=== PATIENT | female | born 1990 | race Hispanic/Latino ===

== ENCOUNTER 2017-05-06 14:43 | Emergency (ER) | payer BC, SELFPAY | END 2017-05-06 16:48 | disposition home or self-care (01) | LOC: ERS 14:43 | DX: N61.0 Mastitis without abscess (principal); J02.9 Acute pharyngitis, unspecified; F17.210 Nicotine dependence, cigarettes, uncomplicated | CPT/HCPCS: 99283 ==

== ENCOUNTER 2017-06-26 20:23 | Emergency (ER) | payer BC ==
[2017-06-26 21:53] LABS: Bilirubin Negative (Negative); Blood, Urine Negative (Negative); Clarity TURBID (Clear); Glucose, Urine (Dipstick) Negative (Negative); Leukocyte Negative (Negative); Nitrite Negative (Negative); Protein, Urine (Dipstick) Negative (Neg-Trace)
[2017-06-26 21:54] LABS: Pregnancy Test - Urine (BHCG) Negative (Negative); Pregu Control Background? CLEAR/WHITE (CLR/WHITE); Pregu Control Bar Appear? YES (CONTROL BAR)
== END 2017-06-26 22:59 | disposition left against medical advice (07) ==
LOC: ERS 20:23
DX: Z53.21 Procedure and treatment not carried out due to patient leaving prior to being seen by health care provider (principal)
CPT/HCPCS: 81003; 81025

== ENCOUNTER 2017-12-25 18:40 | Emergency (ER) | payer BC, SELFPAY ==
[2017-12-25] MEDS ORDERED: Dexamethasone 10 MG/ML VIAL ONE (19:50)
--- NOTE | 2017-12-25 20:20 | RAD ---
CHEST TWO VIEWS 12/25/17 HISTORY: Cough. COMPARISON: 02/19/10. FINDINGS: Normal cardiac silhouette. The lungs and pleural spaces are clear. No pneumothorax or osseous abnorma lities. IMPRESSION: No acute cardiopulmonary process. POS: [facility]
== END 2017-12-25 20:39 | disposition home or self-care (01) ==
LOC: ERS 18:40
DX: J20.9 Acute bronchitis, unspecified (principal); F17.210 Nicotine dependence, cigarettes, uncomplicated; Z71.6 Tobacco abuse counseling
CPT/HCPCS: 71046; 87081; 87430; 96372; 99406; J1100

== ENCOUNTER 2018-05-07 14:45 | Emergency (ER) | payer SELFPAY ==
[~2018-05-07 14:45] MED LIST: Iopamidol 370 76% 100 ML VIAL ONE
[2018-05-07 15:36] LABS: #Basophils 0.1 thou/uL (0.0-0.2); #Eosinphils 0.1 thou/uL (0.0-0.7); #Lymphocytes 4.3 thou/uL (1.20-3.40); #Monocytes 0.8 thou/uL (0.11-0.59); %Lymphocytes 32.2 % (21.0-51.0); %Monocytes 6.1 % (0.0-10.0); %Neutrophils 59.7 % (42.0-75.0); Hemoglobin 15.5 g/dL (12.0-16.0); Mean Corpuscular HGB CONC 33.2 g/dL (32.0-36.0); Mean Corpuscular Hemoglobin 30.5 pg (27.0-31.0); Mean Corpuscular Volume 91.6 fL (78.0-98.0); Mean Platelet Volume 7.5 fL (7.4-10.4); Platelet Count 271 thou/uL (130-400); RBC Distribution Width 11.5 % (11.5-14.5); Red Blood Cell (RBC) Count 5.09 mill/uL (4.20-5.40); White Blood Cell (WBC) Count 13.4 thou/uL (4.8-10.8)
[2018-05-07 15:41] LABS: Bilirubin Negative (Negative); Blood, Urine Negative (Negative); Clarity CLEAR (Clear); Glucose, Urine (Dipstick) Negative (Negative); Leukocyte Negative (Negative); Nitrite Negative (Negative); Protein, Urine (Dipstick) Negative (Neg-Trace); Specific Gravity, Urine 1.026 (1.002-1.036); Urobilinogen 0.2 mg/dL (0.2-1.0)
[2018-05-07 15:42] LABS: Pregnancy Test - Urine (BHCG) Negative (Negative); Pregu Control Background? CLEAR/WHITE (CLR/WHITE); Pregu Control Bar Appear? YES (CONTROL BAR); Specific Gravity 1.026 (1.002-1.036)
[2018-05-07 15:56] LABS: ALT (SGPT) 27 U/L (8-55); AST (SGOT) 23 U/L (5-34); Albumin 4.6 g/dL (3.5-5.0); Alkaline Phosphatase 109 U/L (40-150); Anion Gap 13 mmol/L (10-20); BUN (Urea Nitrogen) 10 mg/dL (7.0-18.7); Bilirubin, Total 0.2 mg/dL (0.2-1.2); Calc. Creatinine Clearance 0 mL/min (70-130); Carbon Dioxide 25 mmol/L (22-29); Chloride 105 mmol/L (98-107); Estimated GFR-MDRD Greater than 90; Globulin 2.6 g/dL (2.4-3.5); Glucose 93 mg/dL (70-105); Lipase 25 U/L (8-78); Potassium 4.3 mmol/L (3.5-5.1); Protein, Total 7.2 g/dL (6.0-8.3); Sodium 139 mmol/L (136-145)
[2018-05-07] MEDS ORDERED: Fentanyl 100 MCG/2 ML VIAL ONE (17:24)
--- NOTE | 2018-05-07 17:34 | CT ---
CT ABDOMEN AND PELVIS WITH IV CONTRAST 05/07/18 HISTORY: Abdominal pain. COMPARISON: 11/12/12. FINDINGS: There is minimal atelectasis at the right lung base. Lung bases are otherwise clear. The liver, spleen, pancreas, bilateral adrenal glands, kidneys, abdominal aorta, urinary bladder, [place] and adnexal structures demonstrate a normal CT appearance. The appendix is visualized and normal in caliber. There is no free fluid, fluid collection or lymphadenopathy seen in the abdomen or pelvis. CT abdomen and pelvis is stable when compared to the prior exam in 2012. IMPRESSION: No acute findings in the abdomen or pelvis. POS: [facility]
== END 2018-05-07 17:49 | disposition home or self-care (01) ==
LOC: ERS 14:45
DX: R11.2 Nausea with vomiting, unspecified (principal); R19.7 Diarrhea, unspecified; R10.31 Right lower quadrant pain; Z71.6 Tobacco abuse counseling; F17.210 Nicotine dependence, cigarettes, uncomplicated
CPT/HCPCS: 36415; 74177; 80053; 81003; 81025; 83690; 85025; 96361; 96374; 99406; J3010; Q9967

== ENCOUNTER 2018-12-17 09:38 | Emergency (ER) | payer SELFPAY ==
[2018-12-17 11:03] LABS: #Basophils 0.1 thou/uL (0.0-0.2); #Eosinphils 0.1 thou/uL (0.0-0.7); #Lymphocytes 2.3 thou/uL (1.20-3.40); #Monocytes 0.7 thou/uL (0.11-0.59); #Neutrophils 9.2 thou/uL (1.40-6.50); %Basophils 0.8 % (0.0-1.0); %Eosinophils 0.6 % (0.0-10.0); %Lymphocytes 18.8 % (21.0-51.0); %Monocytes 5.9 % (0.0-10.0); Hemoglobin 16.7 g/dL (12.0-16.0); Mean Corpuscular HGB CONC 33.3 g/dL (32.0-36.0); Mean Corpuscular Hemoglobin 30.4 pg (27.0-31.0); Mean Corpuscular Volume 91.5 fL (78.0-98.0); Mean Platelet Volume 7.4 fL (7.4-10.4); Platelet Count 258 thou/uL (130-400); RBC Distribution Width 11.6 % (11.5-14.5); Red Blood Cell (RBC) Count 5.49 mill/uL (4.20-5.40); White Blood Cell (WBC) Count 12.5 thou/uL (4.8-10.8)
[2018-12-17 11:13] LABS: BHCG - Serum Negative (NEGATIVE); Pregs Control Background? CLEAR/WHITE (CLR/WHITE); Pregs Control Bar Appear? YES (CONTROL BAR)
[2018-12-17 11:26] LABS: ALT (SGPT) 37 U/L (8-55); AST (SGOT) 24 U/L (5-34); Albumin 4.5 g/dL (3.5-5.0); Alkaline Phosphatase 123 U/L (40-110); Anion Gap 13 mmol/L (10-20); BUN (Urea Nitrogen) 6 mg/dL (7.0-18.7); Bilirubin, Total 0.2 mg/dL (0.2-1.2); Calc. Creatinine Clearance 0 mL/min (70-130); Calcium 10.2 mg/dL (7.8-10.44); Carbon Dioxide 24 mmol/L (22-29); Chloride 107 mmol/L (98-107); Estimated GFR-MDRD Greater than 90; Globulin 2.9 g/dL (2.4-3.5); Glucose 103 mg/dL (70-105); Lipase 24 U/L (8-78); Potassium 4.7 mmol/L (3.5-5.1); Protein, Total 7.4 g/dL (6.0-8.3); Sodium 139 mmol/L (136-145)
--- NOTE | 2018-12-17 12:08 | ULT ---
Exam: Right upper quadrant ultrasound: HISTORY: Right upper quadrant pain radiating to lower abdomen COMPARISON: 11/19/2016 FINDINGS: Visualized liver:Unremarkable. Gallbladder:No evidence of gallstones, wall thickening, edema, or pericholecystic fluid. Technologist indicates a positive Jain's sign. Common bile duct:Within normal limits. The visualized pancreas and right kidney are unremarkable. No evidence for abscess or abnormal fluid collection in the right upper quadrant. IMPRESSION: No evidence of gallstones or common duct dilatation. Technologist indicates positive Jain's sign. If there is concern for acute cholecystitis clinically, follow-up nuclear medicine hepatobiliary scan should be considered.
[2018-12-17] MEDS ORDERED: Ketorolac Tromethamine 30 MG/ML VIAL ONE (12:21)
[2018-12-17] MEDS ORDERED: Ondansetron PF 4 MG/2 ML Vial ONE (12:21)
[2018-12-17 13:26] LABS: Bilirubin Negative (Negative); Blood, Urine Negative (Negative); Clarity Clear (Clear); Glucose, Urine (Dipstick) Normal (Negative); Leukocyte Negative Leu/uL (Negative); Nitrite Negative (Negative); Protein, Urine (Dipstick) Negative (Neg-Trace); Urobilinogen Normal mg/dL (Less than 2)
[2018-12-17] MEDS ORDERED: Acetaminophen 500 MG TAB ONE (14:39)
== END 2018-12-17 14:57 | disposition home or self-care (01) ==
LOC: ERS 09:38
DX: R10.11 Right upper quadrant pain (principal); F17.210 Nicotine dependence, cigarettes, uncomplicated
CPT/HCPCS: 36415; 76705; 80053; 81003; 83690; 84703; 85025; 96361; 96374; 96375; J1885; J2405

== ENCOUNTER 2019-04-06 14:04 | Emergency (ER) | payer SELFPAY ==
[2019-04-06] MEDS ORDERED: Lidocaine 1% (PF) 30 ML VIAL ONE (14:21)
[2019-04-06] MEDS ORDERED: cefTRIAXone\\ROCEPHIN 1 GM VIAL ONE (14:21)
[2019-04-06] MEDS ORDERED: Dexamethasone 4 mg/ml Vial ONE (14:21)
--- NOTE | 2019-04-06 14:33 | RAD ---
PORTABLE CHEST 1 VIEW: Date: 04/06/2019 Time: 1424 hours HISTORY: Cough. Chest pain. FINDINGS: Comparison made with exam of 08/31/16. The heart size is normal. The lungs are expanded without focal areas of consolidation, pneumothoraces , or pleural effusions. IMPRESSION: No radiographic evidence of acute cardiopulmonary process. POS: [facility]
--- NOTE | 2019-04-11 15:32 | EKG ---
Test Reason : COUGH Blood Pressure : / mmHG Vent. Rate : 077 BPM Atrial Rate : 077 BPM P-R Int : 144 ms QRS Dur : 092 ms QT Int : 364 ms P-R-T Axes : 043 051 -29 degrees QTc Int : 411 ms Poor data quality, interpretation may be adversely affected Normal sinus rhythm Possible Left atrial enlargement Incomplete right bundle branch block Confirmed by RAJAT DAVE, LUISA ([id number]), subeditor DEANNE MOULTON ([id number]) on 04/11/2019 3:32:17 PM Referred By: Confirmed By:LUISA EARL MD
== END 2019-04-06 15:42 | disposition home or self-care (01) ==
LOC: ERS 14:04
DX: J18.9 Pneumonia, unspecified organism (principal); F17.210 Nicotine dependence, cigarettes, uncomplicated
CPT/HCPCS: 71045; 87804; 93005; 96372; J0696; J1100; J2001

== ENCOUNTER 2019-09-08 13:50 | Emergency (ER) | payer OTHER, SELFPAY ==
[2019-09-09 12:47] LABS: SARS-CoV-2 MS2 Positive; SARS-CoV-2 N Gene Negative; SARS-CoV-2 S Gene Negative; SARS-CoV-2 orf1ab Negative
== END 2019-09-08 15:23 | disposition home or self-care (01) ==
LOC: ERS 13:50
DX: J02.9 Acute pharyngitis, unspecified (principal); Z20.828 Contact with and (suspected) exposure to other viral communicable diseases; F17.210 Nicotine dependence, cigarettes, uncomplicated
CPT/HCPCS: 87081; 87430; 87635; 99283; U0003

== ENCOUNTER 2019-10-19 15:47 | Emergency (ER) | payer SELFPAY ==
[2019-10-19 16:20] LABS: #Basophils 0.1 thou/uL (0.0-0.2); #Eosinphils 0.1 thou/uL (0.0-0.7); #Lymphocytes 3.6 thou/uL (1.20-3.40); #Neutrophils 7.8 thou/uL (1.40-6.50); %Basophils 0.6 % (0.0-1.0); %Eosinophils 0.7 % (0.0-10.0); %Monocytes 7.9 % (0.0-10.0); %Neutrophils 61.9 % (42.0-75.0); Hemoglobin 15.5 g/dL (12.0-16.0); Mean Corpuscular HGB CONC 32.7 g/dL (32.0-36.0); Mean Corpuscular Hemoglobin 29.7 pg (27.0-31.0); Mean Corpuscular Volume 90.9 fL (78.0-98.0); Mean Platelet Volume 7.4 fL (7.4-10.4); Platelet Count 262 thou/uL (130-400); RBC Distribution Width 11.8 % (11.5-14.5); Red Blood Cell (RBC) Count 5.21 mill/uL (4.20-5.40); White Blood Cell (WBC) Count 12.5 thou/uL (4.8-10.8)
[2019-10-19 16:38] LABS: ALT (SGPT) 37 U/L (8-55); AST (SGOT) 24 U/L (5-34); Albumin 4.6 g/dL (3.5-5.0); Alkaline Phosphatase 113 U/L (40-110); Anion Gap 12 mmol/L (10-20); BUN (Urea Nitrogen) 8 mg/dL (7.0-18.7); Bilirubin, Total 0.4 mg/dL (0.2-1.2); Calc. Creatinine Clearance 0 mL/min (70-130); Calcium 9.3 mg/dL (7.8-10.44); Carbon Dioxide 23 mmol/L (22-29); Chloride 107 mmol/L (98-107); Estimated GFR-MDRD Greater than 90; Globulin 2.8 g/dL (2.4-3.5); Glucose 87 mg/dL (70-105); Potassium 3.9 mmol/L (3.5-5.1); Protein, Total 7.4 g/dL (6.0-8.3); Sodium 138 mmol/L (136-145)
[2019-10-19 16:41] LABS: Bilirubin Negative (Negative); Blood, Urine Negative (Negative); Glucose, Urine (Dipstick) Negative (Negative); Ketone, Urine Negative (Negative); Leukocyte Negative (Negative); Nitrite Negative (Negative); Protein, Urine (Dipstick) Negative (Neg-Trace); Urobilinogen 0.2 mg/dL (Less than 2)
[2019-10-19 16:46] LABS: Clarity Clear (Clear)
[2019-10-19 16:47] LABS: Pregnancy Test - Urine (BHCG) Negative (Negative); Pregu Control Background? CLEAR/WHITE (CLR/WHITE); Pregu Control Bar Appear? YES (CONTROL BAR)
[2019-10-19] MEDS ORDERED: Ondansetron PF 4 MG/2 ML Vial ONE (17:25)
[2019-10-19] MEDS ORDERED: Ketorolac Tromethamine 30 MG/ML VIAL ONE (17:25)
--- NOTE | 2019-10-19 17:58 | CT ---
CT ABDOMEN AND PELVIS PERFORMED WITHOUT CONTRAST ENHANCEMENT: History: Right flank pain. FINDINGS: The lung bases are clear. The liver, spleen, pancreas, and gallbladder regions appear unremarkable given the limitations of the noncontrast study. Right and left adrenal glands and right and left kidneys are normal in size. No renal calculi. No obs truction. No ureteral calculus. No significant periaortic or mesenteric adenopathy. CT OF PELVIS PERFORMED WITHOUT CONTRAST ENHANCEMENT: The appendix is normal. There is no evidence of adenopathy, mass or free fluid. Review of osseous structures show no significant findings. IMPRESSION: Unremarkable CT of the abdomen and pelvis. No renal or ureteral calculi. Normal appendix. POS: [facility] [place]
--- NOTE | 2019-10-19 19:20 | ULT ---
EXAM: US Gallbladder RUQ CLINICAL HISTORY: Right upper quadrant pain. COMPARISON: 12/17/2018 FINDINGS: Pancreas: Obscured by bowel gas Liver:Hepatic parenchyma has a normal echotexture. No hepatic masses or intrahepatic biliary dilatati on. Right hepatic lobe: 13.6 cm Gallbladder: No sonographic evidence of cholelithiasis, gallbladder wall thickening or pericholecysti c fluid. Minimal sludge may be present in the lumen of the gallbladder. Jain's sign:Negative Portal Vein: Patent. Appropriate directional flow Bile ducts: 0.4 cm common bile duct diameter Right kidney: No hydronephrosis. Right kidney measures 11 cm cm in length. IMPRESSION: No sonographic evidence of cholelithiasis or cholecystitis.
== END 2019-10-19 19:45 | disposition home or self-care (01) ==
LOC: ERS 15:47
DX: R10.11 Right upper quadrant pain (principal); R10.31 Right lower quadrant pain; F17.210 Nicotine dependence, cigarettes, uncomplicated
CPT/HCPCS: 36415; 74176; 76705; 80053; 81003; 81025; 83690; 85025; 87086; 96361; 96374; 96375; J1885; J2405

== ENCOUNTER 2020-01-30 13:33 | Emergency (ER) | payer SELFPAY ==
[2020-01-30] MEDS ORDERED: Acetaminophen 500 MG TAB ONE (14:09)
[2020-01-30] MEDS ORDERED: Ketorolac Tromethamine 30 MG/ML VIAL ONE (14:09)
--- NOTE | 2020-01-30 14:35 | RAD ---
RADIOGRAPH CHEST 1 VIEW: DATE: 01/30/2020 HISTORY: 30-year-old female with chest pain FINDINGS: The visualized lung gallagher are clear. The cardiomediastinal silhouette and hilar shadows are normal. The lateral costophrenic angles are sharp. The osseous structures appear normal. There is no pneumothorax. IMPRESSION: Negative.
== END 2020-01-30 14:54 | disposition home or self-care (01) ==
LOC: ERS 13:33
DX: R07.89 Other chest pain (principal); F17.210 Nicotine dependence, cigarettes, uncomplicated
CPT/HCPCS: 71045; 93005; 96372; J1885

== ENCOUNTER 2020-03-11 12:44 | Emergency (ER) | payer SELFPAY ==
[2020-03-11 21:45] LABS: SARS-CoV-2 MS2 Positive; SARS-CoV-2 N Gene Negative; SARS-CoV-2 S Gene Negative; SARS-CoV-2 by NAA Not Detected (NotDetected); SARS-CoV-2 orf1ab Negative
== END 2020-03-11 15:15 | disposition home or self-care (01) ==
LOC: ERS 12:44
DX: H65.91 Unspecified nonsuppurative otitis media, right ear (principal); Z20.828 Contact with and (suspected) exposure to other viral communicable diseases; F17.210 Nicotine dependence, cigarettes, uncomplicated
CPT/HCPCS: 87081; 87430; 87635; 99283; U0003

== ENCOUNTER 2020-05-22 10:42 | Emergency (ER) | payer OTHER, SELFPAY ==
[2020-05-22] MEDS ORDERED: Lidocaine 1% w/Epinephrine 1:100K 20 ML VIAL ONE (11:26)
== END 2020-05-22 12:55 | disposition home or self-care (01) ==
LOC: ERS 10:42
DX: L72.3 Sebaceous cyst (principal); F17.210 Nicotine dependence, cigarettes, uncomplicated
CPT/HCPCS: 10060

== ENCOUNTER 2021-10-11 13:43 | Emergency (ER) | payer SELFPAY ==
[2021-10-11] MEDS ORDERED: Ketorolac Tromethamine 30 MG/ML VIAL ONE (15:29)
[2021-10-11] MEDS ORDERED: Orphenadrine Citrate 60 MG/2 ML VIAL IM SCH (15:45)
== END 2021-10-11 17:37 | disposition home or self-care (01) ==
LOC: ERS 13:43
DX: M54.6 Pain in thoracic spine (principal); F17.210 Nicotine dependence, cigarettes, uncomplicated
CPT/HCPCS: J1885; J2360

== ENCOUNTER 2022-05-09 11:41 | Emergency (ER) | payer SELFPAY ==
[2022-05-09] MEDS ORDERED: Ketorolac Tromethamine 30 MG/ML VIAL ONE (12:38)
== END 2022-05-09 14:25 | disposition home or self-care (01) ==
LOC: ERS 11:41
DX: M25.512 Pain in left shoulder (principal)
CPT/HCPCS: 96372; J1885